=== PATIENT | male | born 1955 | race Caucasian/White ===

== ENCOUNTER → 2016-09-22 | Outpatient (CLI) | payer OTHER ==
[~2016-09-22] MED LIST: OPTIRAY 300 IV PRN
--- NOTE | 2016-09-22 14:51 | DIAGNOSTIC IMAGING REPORT ---
IV PYELOGRAM CLINICAL HISTORY: 61-year-old male with history of nephrolithiasis. TECHNIQUE: Initial bookkeeper assistant abdominal radiograph was obtained. IVP pyelogram was then performed following administration of intravenous contrast, tomographic images are acquired in the corticomedullary and excretory phases of enhancement. Overhead views of the renal collecting system and bladder were obtained in multiple obliquities both pre and post void. COMPARISON: Outside CT of the abdomen and pelvis from 08/02/2016. FINDINGS: Ovoid radiopaque focus in the left pelvis consistent with known distal left ureteral calculus. Normal bowel gas pattern. No gross evidence of free intraperitoneal gas. Osseous structures normal. Normal excretion of intravenous contrast noted bilaterally. No blunting of the calyces. Despite the presence of the distal left ureteral calculus, no hydronephrosis or hydroureter is noted on the left. No delayed excretion. The right renal collecting system is also normal. No filling defect to suggest urothelial mass lesion. Normal filling of the urinary bladder. Mild trabeculation of the bladder wall may be present, which could suggest chronic outlet obstruction. Post void imaging demonstrates near complete bladder imaging. IMPRESSION: 1. Nonobstructing 20 mm calculus in the distal left ureter. No hydronephrosis or hydroureter. Normal renal excretion. 2. Mild trabeculation of the bladder wall suggest chronic outlet obstruction, which could be due to benign prostatic hyperplasia. Electronically signed by: Tex Cuellar 09/22/2016 2:50 PM Dictated Date/Time: 09/22/2016 1:30 PM
== END | disposition home or self-care (01) ==
LOC: C.RAD 12:24
PROVIDERS: ATTEND Urology
DX: N20.2 Calculus of kidney with calculus of ureter (principal)

== ENCOUNTER 2017-03-17 08:41 | Day surgery (SDC) | payer OTHER ==
[2017-03-03 10:46] VITALS: Ht 152.4 cm; Wt 77.8 kg
--- NOTE | 2017-03-03 11:20 | PAT Medication Instructions ---
Service Date Mar 03, 2017. Current Home Medication List Amlodipine (Norvasc), 5 MG PO QAM Aspirin (Aspirin Ec), 81 MG PO QAM Fish Oil ([place]-3), 1 CAP PO QAM Niacin (Niacin), 500 MG PO QAM Medication Instructions For Your Scheduled Surgery - Hold the following medications 2 weeks prior to surgery: Fish Oil ([place]-3), 1 CAP PO QAM - Contact your surgeon for instructions: Aspirin (Aspirin Ec), 81 MG PO QAM - Hold the following medications 24 hours prior to surgery: Niacin (Niacin), 500 MG PO QAM - Take the following medications the morning of surgery with a sip of water: Amlodipine (Norvasc), 5 MG PO QAM If you have any questions please call us at [phone] or [phone] or [phone]
--- NOTE | 2017-03-03 12:07 | DIAGNOSTIC IMAGING REPORT ---
TWO VIEW CHEST CLINICAL HISTORY: Preoperative examination. FINDINGS: PA and lateral chest radiographs are obtained. No prior studies are available for comparison at the time of dictation. The heart is top normal for projection. The intestinal contour is within normal limits. The lungs and pleural spaces are clear. There is no pneumothorax. The bony thorax appears intact. There is moderate S-shaped thoracolumbar scoliosis. IMPRESSION: No active disease in the chest. Electronically signed by: Vicente Flores M.D. 03/03/2017 12:06 PM Dictated Date/Time: 03/03/2017 12:05 PM
[2017-03-03 12:28] LABS: BASO % 0.3 %; BASO ABS # 0.02 K/uL (0-0.2); EOS % 3.4 %; EOS ABS # 0.27 K/uL (0-0.5); HEMATOCRIT 43.5 % (42-52); HEMOGLOBIN 14.3 g/dL (14.0-18.0); IG# 0.02 K/uL (0.00-0.02); LYMPH ABS # 2.14 K/uL (1.2-3.4); MEAN CELL VOLUME 87.5 fL (80-100); MEAN CORPUSCULAR HEMOGLOBIN 28.8 pg (25-34); MEAN CORPUSCULAR HGB CONC 32.9 g/dl (32-36); MEAN PLATELET VOLUME 9.6 fL (7.4-10.4); MONO % 8.1 %; MONO ABS # 0.64 K/uL (0.11-0.59); NEUT % 60.9 %; NEUT ABS # 4.83 K/uL (1.4-6.5); PLATELET COUNT 292 K/uL (130-400); RED CELL DISTRIBUTION WIDTH CV 12.8 % (11.5-14.5); RED CELL DISTRIBUTION WIDTH SD 41.2 fL (36.4-46.3); WHITE BLOOD COUNT 7.92 K/uL (4.8-10.8)
[2017-03-03 12:36] LABS: CALCIUM 8.9 mg/dl (8.5-10.1); CREATININE 0.83 mg/dl (0.60-1.40); POTASSIUM 3.9 mmol/L (3.5-5.1)
[~2017-03-17] VITALS: Ht 152.4 cm; Wt 77.8 kg
[~2017-03-17 08:41] MED LIST changes: +AMLO5TAB3 PO; +ASPI81TA28 PO; +CIPROFLOXACIN / D5W 400 MG IV SCH; +LACTATED RINGER'S 1000ML 1,000 ML IV SCH; +NIAC500T11 PO; +OMEG10007 PO; -OPTIRAY 300 IV PRN
[2017-03-17 09:00] VITALS: BP 156/69; PULSE 76; TEMP 36.8; O2SAT 98
[2017-03-17] MEDS ORDERED: FENTANYL CITRATE INJ 50 MCG/1 ML 2 ML VIAL ONE (09:24)
[2017-03-17] MEDS ORDERED: ONDANSETRON INJ 2 MG/ML 2 ML VIAL ONE (09:24)
[2017-03-17] MEDS ORDERED: MIDAZOLAM HCL 1 MG/ML 2ML VIAL ONE (09:24)
[2017-03-17] MEDS ORDERED: LIDOCAINE HCL 2% 2 ML VIAL (20MG/ML) ONE (09:24)
[2017-03-17] MEDS ORDERED: PROPOFOL IV EMULSION 10 MG/ML 20 ML VIAL IV ONE (09:24)
--- NOTE | 2017-03-17 10:17 | History & Physical Bridge Note ---
H&P Re-Evaluation Bridge Note: I have examined the patient, reviewed the History & Physical and in the interval since the performance of the History & Physical I have noted the following changes of clinical significance: No changes noted Will be placing stent at end of procedure
[2017-03-17] MEDS ORDERED: CONRAY 30% 150ML BOTTLE ONE (10:21)
[2017-03-17] MEDS ORDERED: EpHEDrine SULFATE 50MG/5ML SYR ONE (10:53)
[2017-03-17] MEDS ORDERED: FENTANYL CITRATE INJ 50 MCG/1 ML 2 ML VIAL IV PRN (11:00)
[2017-03-17] MEDS ORDERED: ATROPINE SULFATE 0.1 MG/ML 5ML SYR IV PRN (11:00)
[2017-03-17] MEDS ORDERED: PROMETHAZINE HCL INJ 12.5 MG in SODIUM CHLORIDE 0.9% 50ML 50 ML IV PRN (11:00)
[2017-03-17] MEDS ORDERED: EpHEDrine SULFATE INJ 50 MG/ML AMP IV PRN (11:00)
[2017-03-17] MEDS ORDERED: HYDROmorphone INJ 1 MG/ML SYR IV PRN (11:00)
[2017-03-17] MEDS ORDERED: ONDANSETRON INJ 2 MG/ML 2 ML VIAL IV PRN (11:00)
--- NOTE | 2017-03-17 12:05 | [facility] Post Operative Brief Note ---
Immediate Operative Summary Operative Date Mar 17, 2017. Pre-Operative Diagnosis Left ureteric stone Post-Operative Diagnosis same as preop Procedure(s) Performed Cystoscopy, Left Ureteroscopy, Laser Lithotripsy; Placement of Left Ureteral Stent Surgeon Dr. Saucedo Field Irrigation Worker Surgeon(s) Dr Darius Urbina Estimated Blood Loss 2cc Findings large obstructing prostate with high bladder neck which made lateral movement of the cystosope and semi rigid ureteroscope difficult and inability of flexible scope to stay in ureter because of distal stone location Partial fragmentation of medial aspect of stone Specimens None as per Surgeon Drains 5 by 24 stent Complication(s) None
[2017-03-17] MEDS ORDERED: OXYC-57 PO (12:20)
--- NOTE | 2017-03-17 12:22 | Discharge Instructions ---
Discharge Instructions Date of Service Mar 17, 2017. Visit Reason for Visit: Stones Discharge Discharge Diagnosis / Problem: post op left ureteroscopy and laser lithotripsy and l stent Discharge Goals Goal(s): Increase independence, Improve disease control Activity Recommendations Activity Limitations: per Instructions/Follow-up section (light activity no driving on narcotics) Anesthesia . Post Anesthesia Instructions: If you have had General Anesthesia or IV Sedation: * Do not drive today. * Resume driving when surgeon permits. * Do not make important decisions or sign legal documents today. * Call surgeon for: 1. Temperature elevations greater than 101 degrees F. 2. Uncontrollable pain. 3. Excessive bleeding. 4. Persistent nausea and vomiting. 5. Medication intolerance (nausea, vomiting or rash). * For nausea and vomiting use only clear liquids such as: tea, soda, bouillon until nausea subsides, then gradually increase diet as tolerated. * If you have any concerns or questions, call your surgeon's office. If physician is unavailable and it is an emergency, call 911 or go to the nearest emergency room. . Diet Recommendations Recommended Home Diet: resume previous diet Procedures Procedures Performed: Cystoscopy, Left Ureteroscopy, Laser Lithotripsy; Placement of Left Ureteral Stent Pending Studies Studies pending at discharge: no Medical Emergencies . Who to Call and When: Medical Emergencies: If at any time you feel your situation is an emergency, please call 911 immediately. . Non-Emergent Contact Non-Emergency issues call your: Urologist Call Non-Emergent contact if: temperature is above 100.5, your pain is not controlled . . "Provider Documentation" section prepared by Ar Saucedo. .
[2017-03-17] MEDS ORDERED: PHEN-876 PO (12:23)
--- NOTE | 2017-03-17 12:37 | DIAGNOSTIC IMAGING REPORT ---
KUB CLINICAL HISTORY: LT CYSTO/LASER/STENT COMPARISON STUDY: IVP September 22, [address] of the abdomen and pelvis July 23, 2016. Fluoroscopy time: 95.5 seconds. FINDINGS: 6 fluoroscopic images from a left retrograde exam were submitted for interpretation. These images again demonstrate a suspected large distal left ureteral calculus. The left ureter was cannulated. Subsequent images demonstrate placement of a left ureteral stent. IMPRESSION: Fluoroscopic images from left retrograde exam with left ureteral stent insertion. Redemonstration of a suspected large distal left ureteral calculus. Electronically signed by: Jeferson Rich M.D. 03/17/2017 12:36 PM Dictated Date/Time: 03/17/2017 12:30 PM
--- NOTE | 2017-03-17 12:47 | Anesthesiology Progress Note ---
Anesthesia Post Op Note Date & Time Mar 17, 2017 at 12:47 Vital Signs Pain Intensity: 0 Vital Signs Past 12 Hours Date Time Temp Pulse Resp B/P (MAP) Pulse Ox O2 Delivery O2 Flow Rate FiO2 03/17/17 12:40 77 15 165/95 95 Room Air 03/17/17 12:30 81 15 161/98 96 Room Air 03/17/17 12:20 88 14 168/ 97 Oxymask 10 03/17/17 12:11 36.4 79 18 167/95 100 Oxymask 10 03/17/17 09:00 36.8 76 16 156/69 (98) 98 Room Air Notes Mental Status: alert / awake / arousable, participated in evaluation Pt Amnestic to Procedure: Yes Nausea / Vomiting: adequately controlled Pain: adequately controlled Airway Patency, RR, SpO2: stable & adequate BP & HR: stable & adequate Hydration State: stable & adequate Anesthetic Complications: no major complications apparent
[2017-03-17 12:55] VITALS: BP 168/84; PULSE 80; TEMP 36.5; O2SAT 96
[2017-03-17 13:25] VITALS: BP 172/88; PULSE 84; O2SAT 97
[2017-03-17] MEDS ORDERED: NURSING VERBAL MED ORDER ONE (13:45)
[2017-03-17] MEDS ORDERED: OXYBUTYNIN CHLORIDE 5 MG TAB PO SCH (13:45)
--- NOTE | 2017-03-17 19:09 | OPERATIVE REPORT ---
DATE OF OPERATION: 03/17/2017 PREOPERATIVE DIAGNOSIS: Large distal ureteral stone. POSTOPERATIVE DIAGNOSIS: Same. SURGEON: Dr. Saucedo. CAR REPAIR SUPERVISOR: Dr. Urbina. ANESTHESIA: General. INDICATIONS: The patient is a 61-year-old male who had a long history of having a stone in his distal ureter that is not causing him discomfort. He did not have insurance, so he waited until this point to proceed with ureteroscopy. We discussed lithotripsy and ureteroscopy, but I felt that ureteroscopy given a better chance of having this removed in one go. DESCRIPTION OF THE PROCEDURE: The patient was taken to the cysto suite where general anesthesia was administered, he was placed in dorsal lithotomy position and prepped and draped in the usual sterile fashion. He had given preoperative antibiotics. The 21-Sami cystoscope was passed per urethra, but the patient had a very high bladder neck and an enlarged prostate. Once inside the bladder which had great difficulty torquing downward to get the scope up and over the bladder neck. The prostate was so tight that I could barely torque the scope laterally to see the urethra, in fact, I needed to use a 70 degree lens with a deflecting bridge just to get a guidewire into the ureteral orifice and I needed a 5-Sami open-ended catheter to put the guidewire through to get into the orifice. I was able to get a wire beyond the stone with some difficulty up into the proximal renal pelvis. I did attempt to pass a ureteroscope into the bladder using the initial wire as a safety wire, I was able to get the ureteroscope into the bladder, but I was unable to torque it laterally far enough to get into the ureter. At this point, Dr. Urbina came in to assist. We were able to get a second safety wire and then he was able to get the ureteroscope going over the second safety wire up into the ureter, but we were only able to laser the medial aspect of the stone and because the limited amount of torque could be put on the ureteroscope. Only about 5-10% of the stone was fragmented, may be slightly more and it was clear that this was not going to work. I did attempt to pass a flexible scope up to the stone over the second guidewire that was replaced through the ureteroscope, but because the stone was so close to the UVJ, the ureteroscope fell out and it was clear that it would not stay in place and there was no way to use a tube to keep it in place. At the end of the day, the patient had quite a bit of trauma to his prostate just trying to get the scope in into his ureteral orifice, so a 5-Sami 24 cm stent was placed and the patient was transferred to the recovery room in stable condition with plans of trying lithotripsy. I attest to the content of the Intraoperative Record and any orders documented therein. Any exception s are noted below.
[2017-03-25] MEDS ORDERED: OXYC-57 PO (07:16)
[2017-04-04] MEDS ORDERED: OXYC-57 PO (08:46)
[2017-04-08] MEDS ORDERED: OXYC-57 PO (07:43)
[2017-04-14] MEDS ORDERED: ASPI81TA28 PO (08:46)
[2017-04-14] MEDS ORDERED: PHEN-775 PO (13:14)
[2017-04-14] MEDS ORDERED: NITR1CAP16 PO (13:14)
== END 2017-03-17 14:15 | disposition home or self-care (01) ==
LOC: C.ACU 08:41
PROVIDERS: ATTEND Urology
DX: N20.1 Calculus of ureter (principal); N40.0 Benign prostatic hyperplasia without lower urinary tract symptoms; I10 Essential (primary) hypertension; E78.5 Hyperlipidemia, unspecified; J45.909 Unspecified asthma, uncomplicated; E66.9 Obesity, unspecified; Z68.33 Body mass index [BMI] 33.0-33.9, adult; M41.9 Scoliosis, unspecified; Z79.82 Long term (current) use of aspirin; Z79.899 Other long term (current) drug therapy; Z87.891 Personal history of nicotine dependence

== ENCOUNTER → 2017-03-24 | Outpatient (CLI) | payer OTHER ==
[~2017-03-24] MED LIST changes: +AMLO-110 PO; -AMLO5TAB3 PO; -ASPI81TA28 PO; -CIPROFLOXACIN / D5W 400 MG IV SCH; -LACTATED RINGER'S 1000ML 1,000 ML IV SCH; -NIAC500T11 PO; +OXYC-57 PO
--- NOTE | 2017-03-24 17:19 | DIAGNOSTIC IMAGING REPORT ---
KUB CLINICAL HISTORY: N20.0 Nephrolithiasis COMPARISON STUDY: 09/22/2016 FINDINGS: There is no pathologic bowel dilatation. 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 There is a left-sided nephroureteral stent. There is a 19 mm distal left ureteral calculus. IMPRESSION: 1. 19 mm distal left ureteral calculus 2. Left-sided nephroureteral stent Electronically signed by: Raul Kraus M.D. 03/24/2017 5:18 PM Dictated Date/Time: 03/24/2017 5:17 PM
== END | disposition home or self-care (01) ==
LOC: C.RAD 16:56
PROVIDERS: ATTEND Urology
DX: N20.0 Calculus of kidney (principal); Z96.0 Presence of urogenital implants

== ENCOUNTER → 2017-03-25 | Day surgery (SDC) | payer OTHER ==
[2017-03-23 10:23] VITALS: Ht 152.4 cm; Wt 77.7 kg
[~2017-03-25] VITALS: Ht 152.4 cm; Wt 77.7 kg
[~2017-03-25] MED LIST changes: +ATROPINE SULFATE 0.1 MG/ML 5ML SYR IV PRN; +CIPROFLOXACIN 400MG / D5W IV SCH; +DEXAMETHASONE SOD INJ 4 MG/ML VIAL ONE; +EpHEDrine SULFATE INJ 50 MG/ML AMP IV PRN; +FENTANYL CITRATE INJ 50 MCG/1 ML 2 ML VIAL IV PRN; +FENTANYL CITRATE INJ 50 MCG/1 ML 2 ML VIAL ONE; +LACTATED RINGER'S 1000ML 1,000 ML IV SCH; +LIDOCAINE HCL 2% 2 ML VIAL (20MG/ML) ONE; +MIDAZOLAM HCL 1 MG/ML 2ML VIAL ONE; +ONDANSETRON INJ 2 MG/ML 2 ML VIAL IV PRN; +ONDANSETRON INJ 2 MG/ML 2 ML VIAL ONE; +OXYCODONE/ACETAMINOPHEN 5-325 TAB PO PRN; +PROPOFOL IV EMULSION 10 MG/ML 20 ML VIAL IV ONE; +SODIUM CHLORIDE 0.9% 1000ML 1,000 ML IV SCH
--- NOTE | 2017-03-25 07:05 | History & Physical Bridge Note ---
H&P Re-Evaluation Bridge Note: I have examined the patient, reviewed the History & Physical and in the interval since the performance of the History & Physical I have noted the following changes of clinical significance: No changes noted
--- NOTE | 2017-03-25 07:18 | Discharge Instructions-SurgCtr ---
Discharge Instructions Date of Service Mar 25, 2017. Visit Reason for Visit: Stones Discharge Discharge Diagnosis / Problem: stones Discharge Goals Goal(s): Decrease discomfort, Improve function, Increase independence, Improve disease control, Prevent Disease Progression Medications Stopped Medications Name(s): fish oil stopped 02/1517 Activity Recommendations Activity Limitations: resume your previous activity Lifting Limitations: none Exercise/Sports Limitations: none May Resume Sexual Activity: when tolerated Shower/Bathe: no limitations Driving or Machine Use: resume 1 day after discharge Anesthesia . Post Anesthesia Instructions: If you have had General Anesthesia or IV Sedation: * Do not drive today. * Resume driving when surgeon permits. * Do not make important decisions or sign legal documents today. * Call surgeon for: 1. Temperature elevations greater than 101 degrees F. 2. Uncontrollable pain. 3. Excessive bleeding. 4. Persistent nausea and vomiting. 5. Medication intolerance (nausea, vomiting or rash). * For nausea and vomiting use only clear liquids such as: tea, soda, bouillon until nausea subsides, then gradually increase diet as tolerated. * If you have any concerns or questions, call your surgeon's office. If physician is unavailable and it is an emergency, call 911 or go to the nearest emergency room. . Diet Recommendations Home Diet: no limitations, resume previous diet Pending Studies Studies pending at discharge: no Medical Emergencies . Who to Call and When: Medical Emergencies: If at any time you feel your situation is an emergency, please call 911 immediately. . Non-Emergent Contact Non-Emergency issues call your: Urologist Call Non-Emergent contact if: you have a fever, temperature is above 101.5, your pain is not controlled, your pain is worsening . . "Provider Documentation" section prepared by Diony Choi. . [place] Drug Monitoring Program Search Results: patient reviewed within database, no issues identified Drug Monitoring Findings: 1 prior, appropriate, prescription
--- NOTE | 2017-03-25 08:24 | [facility] Operative Report ---
Operative Report Operative Date Mar 25, 2017. Pre-Operative Diagnosis Left Ureteral stone Post-Operative Diagnosis Same as pre-op Procedure(s) Performed Left Ureteral Extracorporeal Shock Wave Lithotripsy Surgeon Obstetrics Gyn Physician Surgeon(s) None Estimated Blood Loss Zero Findings left ureteral stone Specimens None Drains none Anesthesia Gen. Complication(s) None Disposition Recovery Room / PACU Indications Left ureteral stone Description of Procedure The patient was identified in the preoperative holding area, appropriate informed consent was reviewed and completed and the patient was transported to the operating suite. Upon arrival appropriate preoperative antibiotics were administered and general anesthesia induced. The patient was placed in supine position and the stone was localized under fluoroscopy. A total of 3000 shocks were delivered to the stone. There appeared to be good fragmentation of the stone. Details of this procedure can be found on the [facility] information sheet. At the conclusion of the case the patient was extubated and taken to the PACU in stable condition. There were no complications. I attest to the content of the Intraoperative Record and any orders documented therein. Any exceptions are noted below.
--- NOTE | 2017-03-25 08:35 | Anesthesia Progress Nt - [facility] ---
Anesthesia Post Op Note Date & Time Mar 25, 2017 at 08:34 Vital Signs Pain Intensity: 0 Vital Signs Past 12 Hours Date Time Temp Pulse Resp B/P (MAP) Pulse Ox O2 Delivery O2 Flow Rate FiO2 03/25/17 08:21 102/55 03/25/17 08:18 37.4 62 12 131/69 95 Room Air 03/25/17 08:17 61 16 96 03/25/17 08:17 61 16 03/25/17 08:16 131/69 03/25/17 08:12 62 18 03/25/17 08:12 63 18 98 03/25/17 08:11 127/73 03/25/17 08:09 61 13 98 03/25/17 08:09 61 13 03/25/17 08:06 125/71 03/25/17 08:04 61 13 03/25/17 08:04 61 13 98 03/25/17 08:03 66 15 03/25/17 08:03 66 15 98 03/25/17 08:03 66 15 03/25/17 08:03 66 15 98 03/25/17 08:00 142/76 03/25/17 08:00 142/76 03/25/17 07:58 65 15 03/25/17 07:58 66 15 98 03/25/17 07:58 65 15 03/25/17 07:58 66 15 98 03/25/17 07:56 132/71 03/25/17 07:56 132/71 03/25/17 07:54 130/90 03/25/17 07:54 130/90 03/25/17 07:53 37.3 72 16 130/90 96 Diffusion Mask 6 03/25/17 06:27 36.6 65 22 154/74 (100) 95 Room Air Notes Mental Status: alert / awake / arousable, participated in evaluation Pt Amnestic to Procedure: Yes Nausea / Vomiting: adequately controlled Pain: adequately controlled Airway Patency, RR, SpO2: stable & adequate BP & HR: stable & adequate Hydration State: stable & adequate Anesthetic Complications: no major complications apparent
[2017-03-25 09:04] VITALS: BP 121/68; PULSE 64; O2SAT 95
== END | disposition home or self-care (01) ==
LOC: X.SURG 06:13
PROVIDERS: ATTEND Urology
DX: N20.1 Calculus of ureter (principal); E78.5 Hyperlipidemia, unspecified; I10 Essential (primary) hypertension; Z90.89 Acquired absence of other organs; Z79.82 Long term (current) use of aspirin; Z82.49 Family history of ischemic heart disease and other diseases of the circulatory system; Z84.1 Family history of disorders of kidney and ureter

== ENCOUNTER → 2017-03-31 | Outpatient (CLI) | payer OTHER ==
[~2017-03-31] MED LIST changes: -ATROPINE SULFATE 0.1 MG/ML 5ML SYR IV PRN; -CIPROFLOXACIN 400MG / D5W IV SCH; -DEXAMETHASONE SOD INJ 4 MG/ML VIAL ONE; -EpHEDrine SULFATE INJ 50 MG/ML AMP IV PRN; -FENTANYL CITRATE INJ 50 MCG/1 ML 2 ML VIAL IV PRN; -FENTANYL CITRATE INJ 50 MCG/1 ML 2 ML VIAL ONE; -LACTATED RINGER'S 1000ML 1,000 ML IV SCH; -LIDOCAINE HCL 2% 2 ML VIAL (20MG/ML) ONE; -MIDAZOLAM HCL 1 MG/ML 2ML VIAL ONE; -ONDANSETRON INJ 2 MG/ML 2 ML VIAL IV PRN; -ONDANSETRON INJ 2 MG/ML 2 ML VIAL ONE; -OXYCODONE/ACETAMINOPHEN 5-325 TAB PO PRN; -PROPOFOL IV EMULSION 10 MG/ML 20 ML VIAL IV ONE; -SODIUM CHLORIDE 0.9% 1000ML 1,000 ML IV SCH
--- NOTE | 2017-03-31 11:49 | DIAGNOSTIC IMAGING REPORT ---
KUB HISTORY: N20.0 Nephrolithiasis TO BE DONE EITHER THE NIGHT BEFORE OR MORNI COMPARISON: KUB 03/24/2017. FINDINGS: The bowel gas pattern is unremarkable. There are no dilated loops of small bowel to suggest an obstruction. The left ureteral stent is unchanged in position. Large distal left ureteral stone has been slightly fragmented but remains unchanged in position. Calcification within the right side the abdomen is seen within the anterior abdominal wall in the prior CT examination. No renal calculi identified.. No pneumoperitoneum or pneumatosis. IMPRESSION: The large distal left ureteral stone has been slightly fragmented but remains unchanged in position. Electronically signed by: Mendez Cadena M.D. 03/31/2017 11:48 AM Dictated Date/Time: 03/31/2017 11:45 AM
[2017-03-31 14:37] LABS: BASO % 0.3 %; BASO ABS # 0.03 K/uL (0-0.2); EOS % 3.2 %; HEMATOCRIT 39.1 % (42-52); HEMOGLOBIN 12.8 g/dL (14.0-18.0); IG# 0.02 K/uL (0.00-0.02); LYMPH % 25.5 %; LYMPH ABS # 2.42 K/uL (1.2-3.4); MEAN CELL VOLUME 87.9 fL (80-100); MEAN CORPUSCULAR HEMOGLOBIN 28.8 pg (25-34); MEAN CORPUSCULAR HGB CONC 32.7 g/dl (32-36); MEAN PLATELET VOLUME 9.2 fL (7.4-10.4); MONO % 6.9 %; MONO ABS # 0.66 K/uL (0.11-0.59); NEUT % 63.9 %; NEUT ABS # 6.07 K/uL (1.4-6.5); PLATELET COUNT 294 K/uL (130-400); RED CELL DISTRIBUTION WIDTH CV 12.4 % (11.5-14.5); RED CELL DISTRIBUTION WIDTH SD 39.7 fL (36.4-46.3)
[2017-03-31 15:04] LABS: BLOOD UREA NITROGEN 12 mg/dl (7-18); CARBON DIOXIDE 30 mmol/L (21-32); CREATININE 0.87 mg/dl (0.60-1.40); POTASSIUM 3.7 mmol/L (3.5-5.1); SODIUM 138 mmol/L (136-145)
== END | disposition home or self-care (01) ==
LOC: C.RAD 11:29
PROVIDERS: ATTEND Urology
DX: N20.0 Calculus of kidney (principal)

== ENCOUNTER → 2017-04-07 | Outpatient (CLI) | payer OTHER ==
--- NOTE | 2017-04-07 18:11 | DIAGNOSTIC IMAGING REPORT ---
KUB HISTORY: N20.0 Nephrolithiasis COMPARISON: KUB 03/31/2017. FINDINGS: The bowel gas pattern is unremarkable. There are no dilated loops of small bowel to suggest an obstruction. The left ureteral stent is unchanged in position. Large cluster of stones seen within the distal left ureter measuring a total length of 2 cm. There are few prostate calculi present, unchanged. Stable calcification within the right lower quadrant. No right renal or ureteral calculi identified. No pneumoperitoneum or pneumatosis. IMPRESSION: No change in the fragmented 2 cm stone within the distal left ureter. The left ureteral stent is unchanged in position. Electronically signed by: Mendez Cadena M.D. 04/07/2017 6:09 PM Dictated Date/Time: 04/07/2017 6:07 PM
== END | disposition home or self-care (01) ==
LOC: C.RAD 17:49
PROVIDERS: ATTEND Urology
DX: N20.0 Calculus of kidney (principal); N20.1 Calculus of ureter; Z96.0 Presence of urogenital implants

== ENCOUNTER → 2017-04-08 | Day surgery (SDC) | payer OTHER ==
[2017-04-04 08:47] VITALS: Ht 152.4 cm; Wt 77.7 kg
[~2017-04-08] VITALS: Ht 152.4 cm; Wt 77.7 kg
[~2017-04-08] MED LIST changes: +ATROPINE SULFATE 0.1 MG/ML 5ML SYR IV PRN; +CIPROFLOXACIN 400MG / D5W IV SCH; +DEXAMETHASONE SOD INJ 4 MG/ML VIAL ONE; +EpHEDrine SULFATE INJ 50 MG/ML AMP IV PRN; +FENTANYL CITRATE INJ 50 MCG/1 ML 2 ML VIAL IV PRN; +FENTANYL CITRATE INJ 50 MCG/1 ML 2 ML VIAL ONE; +FLUMAZENIL 0.1 MG/1 ML 10 ML VIAL IV PRN; +LABETALOL HCL IV 5 MG/ML 20ML IV PRN; +LACTATED RINGER'S 1000ML 1,000 ML IV SCH; +LIDOCAINE HCL 2% 2 ML VIAL (20MG/ML) ONE; +MIDAZOLAM HCL 1 MG/ML 2ML VIAL ONE; +NALOXONE HCL 0.4 MG/1 ML VIAL/CARP IV PRN; +ONDANSETRON INJ 2 MG/ML 2 ML VIAL IV PRN; +ONDANSETRON INJ 2 MG/ML 2 ML VIAL ONE; +OXYCODONE/ACETAMINOPHEN 5-325 TAB PO PRN; +PROPOFOL IV EMULSION 10 MG/ML 20 ML VIAL IV ONE
--- NOTE | 2017-04-08 07:34 | History & Physical Bridge Note ---
H&P Re-Evaluation Bridge Note: I have examined the patient, reviewed the History & Physical and in the interval since the performance of the History & Physical I have noted the following changes of clinical significance: Left distal stone to be targeted
--- NOTE | 2017-04-08 07:45 | Discharge Instructions ---
Discharge Instructions Date of Service Apr 08, 2017. Admission Reason for Admission: STONE Discharge Discharge Diagnosis / Problem: L distal ureteral stone with stent s/p ESWL Discharge Goals Goal(s): Decrease discomfort, Improve function, Improve disease control, Therapeutic intervention Activity Recommendations Activity Limitations: as noted below Lifting Limitations: no more than 25 pounds, gradually increase as tolerated Exercise/Sports Limitations: rest today, gradually increase as tolerated May Resume Sexual Activity: when tolerated Shower/Bathe: no limitations Driving or Machine Use: resume 1 day after discharge . Instructions / Follow-Up Instructions / Follow-Up As scheduled in office with KUB Xray before visit. Current Hospital Diet Patient's current hospital diet: Discharge Diet Recommended Diet: Regular Diet (good fluid intake) Procedures Procedures Performed: Left distal ureteral ESWL Pending Studies Studies pending at discharge: no Medical Emergencies . Who to Call and When: Medical Emergencies: If at any time you feel your situation is an emergency, please call 911 immediately. . Non-Emergent Contact Non-Emergency issues call your: Urologist Call Non-Emergent contact if: you have a fever, temperature is above 101, your pain is not controlled, your pain is worsening, your pain is unusual for you, your pain is concerning you, you have any medication questions . . "Provider Documentation" section prepared by Darius Urbina. . VTE Core Measure Inpt VTE Proph given/why not?: SCD's [place] Drug Monitoring Program Search Results: patient reviewed within database, see additional documentation (2 recent Rx for narcotics associated with current stone, last 10 days ago - patient requests refill for postop analgesia)
--- NOTE | 2017-04-08 08:25 | [facility] Post Operative Brief Note ---
Immediate Operative Summary Operative Date Apr 08, 2017. Pre-Operative Diagnosis Left Ureteral Stone Post-Operative Diagnosis Same Procedure(s) Performed Left Extracorporeal Shock Wave Lithotripsy, Repeat Surgeon Dr. Juan Luis Urbina Wafer Fabrication Technician Surgeon(s) None Estimated Blood Loss 0 mL Findings Consistent with Post-Op Diagnosis Specimens None Anesthesia Type General Complication(s) none Disposition Accompanied Pt To Recover: no Disposition: Recovery Room / PACU
--- NOTE | 2017-04-08 08:26 | [facility] Operative Report ---
Operative Report Operative Date Apr 08, 2017. Pre-Operative Diagnosis Left Ureteral Stone Post-Operative Diagnosis Same Procedure(s) Performed Left Extracorporeal Shock Wave Lithotripsy, Repeat Surgeon Dr. Juan Luis Urbina International Account Manager Surgeon(s) None Estimated Blood Loss 0 mL Findings Fair stone fragmentation on fluoro Specimens None Drains Indwelling stent Anesthesia GALMA Disposition Recovery Room / PACU Indications 61 yo male with persistent L distal ureteral stone for repeat treatment. Please see H&P for further details. IV Cipro provided preop, SCDs for DVT prophylaxis. Description of Procedure The patient was brought to the litho suite. He was correctly identified and the stone was visualized on his most recent x-rays. After the correct time out was performed the patient was positioned over the therapy head. An adequate level of anesthesia was administered. The extracorporeal shockwave lithotripsy treatment was then commenced. Please see the [facility] sheet for complete treatment summary. After completion of the procedure the patient was taken to the recovery room in stable condition. I attest to the content of the Intraoperative Record and any orders documented therein. Any exceptions are noted below.
[2017-04-08 09:06] VITALS: TEMP 37
--- NOTE | 2017-04-08 09:20 | Anesthesia Progress Nt - [facility] ---
Anesthesia Post Op Note Date & Time Apr 08, 2017 at 09:20 Vital Signs Pain Intensity: 0 Vital Signs Past 12 Hours Date Time Temp Pulse Resp B/P (MAP) Pulse Ox O2 Delivery O2 Flow Rate FiO2 04/08/17 09:06 37.0 81 18 151/76 (101) 95 Room Air 04/08/17 08:55 73 12 04/08/17 08:55 37.1 75 13 124/73 97 Room Air 04/08/17 08:55 74 12 124/73 98 04/08/17 08:50 82 18 134/73 96 04/08/17 08:50 82 18 04/08/17 08:45 75 13 04/08/17 08:45 75 13 133/75 99 04/08/17 08:40 75 10 04/08/17 08:40 75 10 129/67 99 04/08/17 08:35 81 21 127/75 99 04/08/17 08:35 82 21 04/08/17 08:30 87 142/80 98 04/08/17 08:30 87 04/08/17 08:30 36.9 86 16 142/80 96 Mask 6 04/08/17 07:19 36.7 73 18 181/95 (123) 95 Room Air Notes Mental Status: alert / awake / arousable, participated in evaluation Pt Amnestic to Procedure: Yes Nausea / Vomiting: adequately controlled Pain: adequately controlled Airway Patency, RR, SpO2: stable & adequate BP & HR: stable & adequate Hydration State: stable & adequate Anesthetic Complications: no major complications apparent
[2017-04-08 09:33] VITALS: BP 151/87; PULSE 78; O2SAT 96
== END | disposition home or self-care (01) ==
LOC: X.SURG 07:02
PROVIDERS: ATTEND Urology
DX: N20.1 Calculus of ureter (principal); I10 Essential (primary) hypertension

== ENCOUNTER → 2017-04-13 | Outpatient (CLI) | payer OTHER ==
[~2017-04-13] MED LIST changes: +ASPI81TA28 PO; -ATROPINE SULFATE 0.1 MG/ML 5ML SYR IV PRN; -CIPROFLOXACIN 400MG / D5W IV SCH; -DEXAMETHASONE SOD INJ 4 MG/ML VIAL ONE; -EpHEDrine SULFATE INJ 50 MG/ML AMP IV PRN; -FENTANYL CITRATE INJ 50 MCG/1 ML 2 ML VIAL IV PRN; -FENTANYL CITRATE INJ 50 MCG/1 ML 2 ML VIAL ONE; -FLUMAZENIL 0.1 MG/1 ML 10 ML VIAL IV PRN; -LABETALOL HCL IV 5 MG/ML 20ML IV PRN; -LACTATED RINGER'S 1000ML 1,000 ML IV SCH; -LIDOCAINE HCL 2% 2 ML VIAL (20MG/ML) ONE; -MIDAZOLAM HCL 1 MG/ML 2ML VIAL ONE; -NALOXONE HCL 0.4 MG/1 ML VIAL/CARP IV PRN; +NITR1CAP16 PO; -ONDANSETRON INJ 2 MG/ML 2 ML VIAL IV PRN; -ONDANSETRON INJ 2 MG/ML 2 ML VIAL ONE; -OXYCODONE/ACETAMINOPHEN 5-325 TAB PO PRN; +PHEN-775 PO; -PROPOFOL IV EMULSION 10 MG/ML 20 ML VIAL IV ONE
--- NOTE | 2017-04-13 13:51 | DIAGNOSTIC IMAGING REPORT ---
KUB HISTORY: N20.0 [id number] COMPARISON: KUB 04/07/2017. FINDINGS: The bowel gas pattern is unremarkable. There are no dilated loops of small bowel to suggest an obstruction. The left ureteral stent is unchanged in position. There has been progressive fragmentation of the stones at the distal left ureter/ureterovesical junction. No renal calculi identified. No pneumoperitoneum or pneumatosis. IMPRESSION: Progressive fragmentation of the stones at the distal left ureter/ureterovesical junction. The left ureteral stent is unchanged in position. Electronically signed by: Mendez Cadena M.D. 04/13/2017 1:50 PM Dictated Date/Time: 04/13/2017 1:48 PM
== END | disposition home or self-care (01) ==
LOC: C.RAD 12:51
PROVIDERS: ATTEND Urology
DX: N20.0 Calculus of kidney (principal); N20.1 Calculus of ureter; Z96.0 Presence of urogenital implants

== ENCOUNTER → 2017-04-14 | Day surgery (SDC) | payer OTHER ==
[~2017-04-14] VITALS: Ht 152.4 cm; Wt 78.0 kg
[~2017-04-14] MED LIST changes: +ATROPINE SULFATE 0.1 MG/ML 5ML SYR IV PRN; +CONRAY 30% 150ML BOTTLE ONE; +EpHEDrine SULFATE INJ 50 MG/ML AMP IV PRN; +FENTANYL CITRATE INJ 50 MCG/1 ML 2 ML VIAL IV PRN; +FENTANYL CITRATE INJ 50 MCG/1 ML 2 ML VIAL ONE; +GENTAMICIN INJ 120 MG in DEXTROSE 5% 100ML 100 ML IV SCH; +HYDROmorphone INJ 0.5 MG/0.5 ML SYR IV PRN; +LACTATED RINGER'S 1000ML 1,000 ML IV SCH; +LIDOCAINE HCL 2% 2 ML VIAL (20MG/ML) ONE; +MIDAZOLAM HCL 1 MG/ML 2ML VIAL ONE; +MoRPHine SULFATE 2 MG/ML CARP IV PRN; +ONDANSETRON INJ 2 MG/ML 2 ML VIAL IV PRN; +ONDANSETRON INJ 2 MG/ML 2 ML VIAL ONE; +OXYCODONE/ACETAMINOPHEN 5-325 TAB PO PRN; +PHENAZOPYRIDINE HCL 200 MG TAB PO PRN; +PROPOFOL IV EMULSION 10 MG/ML 20 ML VIAL IV ONE
[2017-04-14 08:47] VITALS: BP 157/88; PULSE 77; TEMP 37; O2SAT 97; Ht 152.4 cm; Wt 78.0 kg
--- NOTE | 2017-04-14 12:57 | [facility] Post Operative Brief Note ---
Immediate Operative Summary Operative Date Apr 14, 2017. Pre-Operative Diagnosis Left Refractory Ureteral Stone Post-Operative Diagnosis Left Refractory Ureteral Stone Procedure(s) Performed Cystoscopy, Left Semi Rigid Ureteroscopy, Laser Lithotripsy, Basket Stone Extraction, Ureteral Stent Exchange, Clot Irrigation, Mari Placement Surgeon Dr. Darius Urbina Gathering Worker Surgeon(s) None Estimated Blood Loss 20 ML Findings Consistent with Post-Op Diagnosis Specimens A. Stone Fragment for Chemical Analysis Drains 6 fr multilength L ureteral stent, 22 fr coude 10 cc Anesthesia Type General Complication(s) none Disposition Accompanied Pt To Recover: no Disposition: Recovery Room / PACU
--- NOTE | 2017-04-14 13:15 | Discharge Instructions ---
Discharge Instructions Date of Service Apr 14, 2017. Admission Reason for Admission: Stones Discharge Discharge Diagnosis / Problem: L distal ureteral stone s/p laser litho, stent exchange Discharge Goals Goal(s): Decrease discomfort, Improve disease control, Therapeutic intervention Activity Recommendations Activity Limitations: as noted below Lifting Limitations: no more than 25 pounds, gradually increase as tolerated Exercise/Sports Limitations: rest today, gradually increase as tolerated May Resume Sexual Activity: after follow-up appointment Shower/Bathe: no limitations Driving or Machine Use: resume 1 day after discharge . Instructions / Follow-Up Instructions / Follow-Up Follow-up in office with [facility] Xray before visit for possible stent removal Current Hospital Diet Patient's current hospital diet: Discharge Diet Recommended Diet: Regular Diet (good fluid intake) Procedures Procedures Performed: Cystoscopy, Left Semi Rigid Ureteroscopy, Laser Lithotripsy, Basket Stone Extraction, Ureteral Stent Exchange, Clot Irrigation, Mari Placement Pending Studies Studies pending at discharge: yes List of pending studies: Stone analysis Medical Emergencies . Who to Call and When: Medical Emergencies: If at any time you feel your situation is an emergency, please call 911 immediately. . Non-Emergent Contact Non-Emergency issues call your: Urologist Call Non-Emergent contact if: you have a fever, temperature is above 101, your pain is not controlled, your pain is worsening, your pain is unusual for you, your pain is concerning you, you have any medication questions . . "Provider Documentation" section prepared by Darius Urbina. . VTE Core Measure Inpt VTE Proph given/why not?: SCD's
--- NOTE | 2017-04-14 13:26 | [facility] Operative Report ---
Operative Report Operative Date Apr 14, 2017. Pre-Operative Diagnosis Left Refractory Ureteral Stone Post-Operative Diagnosis Left Refractory Ureteral Stone Procedure(s) Performed Cystoscopy, Left Semi Rigid Ureteroscopy, Laser Lithotripsy, Basket Stone Extraction, Ureteral Stent Exchange, Clot Irrigation, Mari Placement Surgeon Dr. Darius Urbina Exceptional Student Education Teacher Surgeon(s) None Estimated Blood Loss 20 ML Findings Friable prostate with some bleeding, large L distal ureteral stone fragmented and most of it removed with basket, good stent position at completion of case. Specimens A. Stone Fragment for Chemical Analysis Drains 6 fr multilength L ureteral stent, 22 fr coude 10 cc Anesthesia GALMA Complication(s) None Disposition Recovery Room / PACU Indications Patient is a pleasant 61-year-old male with a history of a large left distal ureteral stone status post stent placement approximately one month ago. He has undergone 2 shockwave lithotripsies with partial fragmentation of his stone. After discussion of risks and benefits of various forms of management is decided upon endoscopic extraction of his residual stone managed his disease. Please see H&P and office visit for further details. Intravenous antibiotics were provided for coverage and SCDs used for DVT prophylaxis. Description of Procedure Patient was properly identified and brought into the operative suite after identification for appropriate consent of the chart. General anesthesia with laryngeal mask was initiated and patient was prepped and draped in the standard fashion for this procedure. Full timeout procedure was followed. 22 [place] rigid cystoscope was passed into the bladder under direct visualization demonstrating a normal urethra, elevated bladder neck with a median lobe element and lateral lobe hypertrophy. Grade 2 trabeculation of the bladder was appreciated with small stone fragments being present. Redundant stent was noted from the left ureteral orifice with expected mild edema in the vicinity. Stent was grasped and brought to the level of the meatus but attempts to cannulate it were not successful in the region of the proximal stent. Cystoscope was reintroduced into the bladder and using a sole sewer hand catheter a sensor tip wire was advanced next to the stent and passed stones up to the level of the left renal pelvis and kept until the end of the case as a safety wire. A second angled sensor wire was introduced is working wire but coiled within the distal ureter just proximal to the stone. Stent was grasped and removed intact without difficulties. Semirigid ureteroscope was introduced after emptying the bladder and passed into the left distal ureter without excess difficulty. Stone was encountered and using a 200 fiber on dusting settings the patient's left ureteral stone fragments were broken into much smaller pieces and dust. This was continued until the scope was able to be advanced up to the level of the vessels with proximal dilation being appreciated with no significant large residual stone fragments being noted. A 0 tip basket was used to remove the larger fragments from the patient which were sent for chemical analysis. Ureteroscope was reintroduced into the ureter and several other stone fragments were removed and left within the bladder for removal at the end of the case. Ureteroscope was reintroduced and no significant large stone fragments were appreciated either on direct visualization or fluoroscopy. No significant ureteral injury or tears were noted. Complete exit ureteroscopy was performed. Cystoscope was backloaded over the safety wire and a 6 [place] multilength ureteral stent was advanced with a full coil being present both within the left renal pelvis and within the bladder. Several clots were noted within the bladder due to manipulation and bleeding from the prostate gland. These were irrigated free using a Shaggy syringe until the bladder was noted to be free of any significant clots were stone fragments. Minimal oozing was present from the prostate gland and fulguration was not felt to be necessary. Bladder was partially distended and a 22 [place] Mari catheter was placed for bladder rest in the immediate postoperative period with 10 mL of sterile water in the balloon. Catheter was drained and irrigated with isovolemic return. Anesthesia was reversed and patient was transferred to the recovery room in stable stable condition. Follow-up care: Patient will be discharged home with a short course of Macrobid and a refill on Pyridium. He reports he has pain medication at home. Outpatient appointment with [facility] for possible cystoscopy and stent removal is confirmed. Patient is instructed to contact us should he note any fevers, chills, nausea, vomiting or other difficulties in his postoperative period. I attest to the content of the Intraoperative Record and any orders documented therein. Any exceptions are noted below.
--- NOTE | 2017-04-14 13:40 | DIAGNOSTIC IMAGING REPORT ---
FLUOROSCOPIC IMAGES FROM RETROGRADE EXAM CLINICAL HISTORY: LT CYSTO/LASER/STENT EXCHANGE COMPARISON STUDY: [facility] FebruaryApril 13, 2017. Fluoroscopy time: 165 seconds. FINDINGS: 5 fluoroscopic images demonstrate left ureteral stent exchange. Multiple distal left ureteral calculi are noted on the initial images. These calculi are not definitively visualized on the final image obtained at 12:52 PM. IMPRESSION: Fluoroscopic images from left retrograde exam with stent exchange and lithotripsy. Electronically signed by: Jeferson Rich M.D. 04/14/2017 1:38 PM Dictated Date/Time: 04/14/2017 1:37 PM
--- NOTE | 2017-04-14 13:57 | Anesthesiology Progress Note ---
Anesthesia Post Op Note Date & Time Apr 14, 2017 at 13:57 Vital Signs Pain Intensity: 0 Vital Signs Past 12 Hours Date Time Temp Pulse Resp B/P (MAP) Pulse Ox O2 Delivery O2 Flow Rate FiO2 04/14/17 13:48 36.7 76 17 161/83 97 Room Air 2 Oxymask 04/14/17 13:42 75 16 97 04/14/17 13:42 77 16 04/14/17 13:41 160/93 04/14/17 13:37 79 17 04/14/17 13:37 80 17 94 04/14/17 13:36 164/92 04/14/17 13:32 79 18 04/14/17 13:32 79 18 94 04/14/17 13:31 161/93 04/14/17 13:27 76 16 96 04/14/17 13:27 77 16 04/14/17 13:26 163/92 04/14/17 13:22 75 18 98 04/14/17 13:22 76 18 04/14/17 13:21 157/91 04/14/17 13:17 80 14 04/14/17 13:17 79 14 99 04/14/17 13:16 74 16 04/14/17 13:16 78 16 157/93 97 04/14/17 13:11 79 15 173/95 95 04/14/17 13:11 81 15 04/14/17 13:07 179/98 04/14/17 13:06 82 16 04/14/17 13:06 81 16 99 04/14/17 13:06 36.4 93 17 179/98 96 Oxymask 10 04/14/17 08:47 37 77 16 157/88 (111) 97 Room Air Notes Mental Status: alert / awake / arousable, participated in evaluation Pt Amnestic to Procedure: Yes Nausea / Vomiting: adequately controlled Pain: adequately controlled Airway Patency, RR, SpO2: stable & adequate BP & HR: stable & adequate Hydration State: stable & adequate Anesthetic Complications: no major complications apparent
[2017-04-14 14:30] VITALS: BP 144/78; PULSE 74; TEMP 37.2; O2SAT 96
[2017-04-14 15:00] VITALS: BP 134/69; PULSE 81; O2SAT 97
[2017-04-14 15:30] VITALS: BP 159/82; PULSE 85; TEMP 37.1; O2SAT 98
== END | disposition home or self-care (01) ==
LOC: C.ACU 08:05
PROVIDERS: ATTEND Urology
DX: N20.1 Calculus of ureter (principal); N20.0 Calculus of kidney; I10 Essential (primary) hypertension; Z68.33 Body mass index [BMI] 33.0-33.9, adult; E66.9 Obesity, unspecified; E78.5 Hyperlipidemia, unspecified; Z90.89 Acquired absence of other organs; Z79.82 Long term (current) use of aspirin; Z82.49 Family history of ischemic heart disease and other diseases of the circulatory system; Z84.1 Family history of disorders of kidney and ureter

== ENCOUNTER → 2017-04-26 | Outpatient (CLI) | payer OTHER ==
[~2017-04-26] MED LIST changes: -ATROPINE SULFATE 0.1 MG/ML 5ML SYR IV PRN; -CONRAY 30% 150ML BOTTLE ONE; -EpHEDrine SULFATE INJ 50 MG/ML AMP IV PRN; -FENTANYL CITRATE INJ 50 MCG/1 ML 2 ML VIAL IV PRN; -FENTANYL CITRATE INJ 50 MCG/1 ML 2 ML VIAL ONE; -GENTAMICIN INJ 120 MG in DEXTROSE 5% 100ML 100 ML IV SCH; -HYDROmorphone INJ 0.5 MG/0.5 ML SYR IV PRN; -LACTATED RINGER'S 1000ML 1,000 ML IV SCH; -LIDOCAINE HCL 2% 2 ML VIAL (20MG/ML) ONE; -MIDAZOLAM HCL 1 MG/ML 2ML VIAL ONE; -MoRPHine SULFATE 2 MG/ML CARP IV PRN; -NITR1CAP16 PO; -ONDANSETRON INJ 2 MG/ML 2 ML VIAL IV PRN; -ONDANSETRON INJ 2 MG/ML 2 ML VIAL ONE; -OXYCODONE/ACETAMINOPHEN 5-325 TAB PO PRN; -PHEN-775 PO; -PHENAZOPYRIDINE HCL 200 MG TAB PO PRN; -PROPOFOL IV EMULSION 10 MG/ML 20 ML VIAL IV ONE
--- NOTE | 2017-04-26 13:40 | DIAGNOSTIC IMAGING REPORT ---
[facility] CLINICAL HISTORY: N20.0 [id number] nephrocalcinosis COMPARISON STUDY: 04/13/2017 FINDINGS: Left ureteral stent unchanged in position. There has been progressive fragmentation of the grouping of stones distal left ureter adjacent to the left ureteral stent. No significant left renal calcifications are appreciated. Moderate degenerative change lumbar spine. Several prosthetic calcifications unchanged in appearance. IMPRESSION: 1. Progressive fragmentation of the grouping of calcifications distal left ureter adjacent to the stent. 2. The stent itself is in good position. The above report was generated using voice recognition software. It may contain grammatical, syntax or spelling errors. Electronically signed by: Joe Rubalcava M.D. 04/26/2017 1:38 PM Dictated Date/Time: 04/26/2017 1:36 PM
== END | disposition home or self-care (01) ==
LOC: C.RAD 12:56
PROVIDERS: ATTEND Urology
DX: N20.1 Calculus of ureter (principal); Z96.0 Presence of urogenital implants

== ENCOUNTER → 2017-05-30 | Outpatient (CLI) | payer OTHER ==
[~2017-05-30] MED LIST changes: +OPTIRAY 300 IV PRN
--- NOTE | 2017-05-30 14:27 | DIAGNOSTIC IMAGING REPORT ---
IV PYELOGRAM CLINICAL HISTORY: Nephrolithiasis. COMPARISON STUDY: Abdominal CT dated 08/02/2016. IV pyelogram dated 09/22/2016. [facility] dated 04/26/2017. TECHNIQUE: An abdominal attendant coin operated laundry radiograph is performed. IVP pyelogram was then performed following the IV administration of iodinated contrast, tomographic images are acquired in the corticomedullary and excretory phases of enhancement. Overhead views of the renal collecting system and bladder were obtained in multiple obliquities both pre and post void. FINDINGS: Abdominal attendant coin operated laundry radiograph shows a nonobstructed abdominal bowel gas pattern. No calcifications project over either kidney. A 6 cm calcification projects over the left vesicoureteral junction. Prostatic calcifications are seen in the the pelvis. There is mild lumbosacral spondylosis and scoliosis. Following contrast administration the kidneys enhance and excrete symmetrically. There is no hydronephrosis. There is no evidence of urothelial lesion involving the renal pelvis bilaterally or along the course of the ureters. The bladder is normal as visualized. No significant post void residual is seen. IMPRESSION: 1. Suspect a residual 6 mm stone within the distal left ureter just above the vesicoureteral junction. 2. There is no hydronephrosis. 3. No additional calcifications are seen projecting over either kidney. Electronically signed by: Vicente Flores M.D. 05/30/2017 2:26 PM Dictated Date/Time: 05/30/2017 2:21 PM
== END | disposition home or self-care (01) ==
LOC: C.RAD 12:30
PROVIDERS: ATTEND Urology
DX: N20.0 Calculus of kidney (principal)

== ENCOUNTER 2021-06-08 10:38 | Observation (INO) ==
--- NOTE | 2021-06-04 11:06 | Anesthesiology Consultation ---
Date of Service June 04, 2021 Assessment & Plan (1) Encounter for pre-operative examination: Chart Review Chart Review: Acceptable Risk for Surgery (pending preop Covid testing results ) and Patient NOT seen in Pre Admission Testing Per nursing assessment 06/04/2021, patient denies any recent travel with exception to local travel. No known Covid positive exposures or Covid related symptoms. Pt did test Covid positive 04/11/21 (had cough, fatigue, sore throat- symptoms have since resolved)- Covid test was a rapid test on 04/11/21. Pt is fully vaccinated for Covid. Preop Covid testing scheduled 06/04/21= will await results. If patient does test Covid positive- he will need rescheduled due to Mar 2021 positive Covid test being a rapid test Cysto, retro pyelogram, extract bladder stone 10/02/20= Done under [facility] with LMA #4. History Surgery Operation Date: 06/08/21 13:30 Proposed Procedures p Transurethral Resection Prostate - Jaspal Sawyer DO s Cystolithopaxy Possible Bilateral Ureteroscopy and Stone Treatment - Jaspal Sawyer DO Height/Weight Height: 5 ft Weight: 77.564 kg Allergies Allergy/AdvReac Type Severity Reaction Status Date / Time bee venom protein (honey bee) Allergy Severe anayphylaxi Verified 06/04/21 09:48 s No Known Drug Allergies Allergy Unknown NONE Verified 06/04/21 09:48 Medications Home Medications Medication Instructions Recorded Confirmed Last Taken amlodipine 5 mg tablet 5 mg PO QAM 07/22/20 06/04/21 10/02/20 07:30 aspirin 81 mg tablet,delayed 162 mg PO QAM 07/22/20 06/04/21 09/18/20 08:00 release (Adult Aspirin Regimen) omega-3 fatty acids 1,000 mg 1,000 mg PO QAM 07/22/20 06/04/21 09/18/20 08:00 capsule (Fish Oil Concentrate) phenazopyridine 200 mg tablet 200 mg PO Q8H PRN #10 tab 10/02/20 06/04/21 Unknown (Pyridium) atorvastatin 40 mg tablet 40 mg PO QPM 02/11/21 06/04/21 Unknown cranberry fruit 450 mg tablet 450 mg PO QAM 02/11/21 06/04/21 Unknown niacin 500 mg capsule,extended 500 mg PO QAM 02/11/21 06/04/21 Unknown release pediatric multivitamin no.163-vit 1 cap PO QAM 02/11/21 06/04/21 Unknown D3 750 unit-vit K 500 mcg capsule (MVW Complete Formulation Multivitamin) finasteride 5 mg tablet 5 mg PO QAM 06/04/21 06/04/21 Unknown Past Medical History Medical History BPH (benign prostatic hyperplasia) Cardiac murmur Mild aortic regurgitation noted on 2018 echocardiogram. History of COVID-19 FIRST WEEK 03/2021-DX'D AT [facility]-SORE THROAT, FATIGUE, COUGH-RECOVERED AT HOME-SYMPTOMS RESOLVED History of nephrolithiasis HLD (hyperlipidemia) HTN (hypertension) Obesity Refusal of blood transfusions as patient is Religion Past Family History Family History Sister Family history of reaction to anesthesia SLOW TO WAKE UP Sister Family history of reaction to anesthesia Past Surgical History Surgical History H/O lithotripsy X 2 History of colonoscopy 2018 History of cystoscopy History of tonsillectomy Social History Smoking Status: Former smoker Do You Dip or Chew Tobacco: No Smoking End Date: QUIT 25 YRS AGO Hx Alcohol Use: Yes Alcohol type: beer alcohol intake frequency: other Alcohol Intake Frequency Comment: RARELY Hx Substance Use: No substance use type: does not use Lab Results Anesthesia Preop Results Results Anesthesia Widget: WBC 7.49 K/uL (4.8-10.8) 05/28/21 Hgb 13.6 g/dL (14.0-18.0) L 05/28/21 Hct 43.8 % (42-52) 05/28/21 Plt 286 K/uL (130-400) 05/28/21 Na 138 mmol/L (136-145) 05/28/21 K 4.0 mmol/L (3.5-5.1) 05/28/21 Cl 105 mmol/L (98-107) 05/28/21 CO2 29 mmol/L (21-32) 05/28/21 BUN 13 mg/dl (6-23) 05/28/21 Creat 0.73 mg/dl (0.6-1.4) 05/28/21 Glucose Level 109 mg/dl (70-99(Fasting)) H 05/28/21 Urine Color Yellow 05/28/21 Urine Appearance Clear (Clear) 05/28/21 Urine pH 7.0 (4.5-7.5) 05/28/21 Urine Specific [place] 1.010 (1.000-1.030) 05/28/21 Urine Protein Negative (Negative) 05/28/21 Urine Glucose (UA) Negative (Negative) 05/28/21 Urine Ketones Negative (Negative) 05/28/21 Urine Blood Negative (Negative) 05/28/21 Urine Nitrite Negative (Negative) 05/28/21 Urine Bilirubin Negative (Negative) 05/28/21 Urine Urobilinogen Negative (Negative) 05/28/21 Urine Leukocyte Esterase Negative (Negative) 05/28/21 Testing Laboratory Results 06/02/21= URINE CULTURE: No growth Electrocardiogram Date: 09/11/20 Sinus rhythm at 71 bpm with sinus arrhythmia. Left axis deviation. Chest X-Ray Date: 09/11/20 Findings: + NAD Echocardiogram Date: 12/28/17 EF: 60% Normal ejection fraction. Mild concentric hypertrophy. Grade 1 diastolic dysfunction. Normal right ventricular size with normal function. Normal atria. Mitral valve is moderately thickened. Mild aortic regurgitation- directed centrally. Normal PA pressure. Normal aorta.
[~2021-06-08 10:38] MED LIST changes: -AMLO-110 PO; -ASPI81TA28 PO; +LR 15ML/HR IV SCH; -OMEG10007 PO; -OPTIRAY 300 IV PRN; -OXYC-57 PO
--- NOTE | 2021-06-08 12:11 | History & Physical Bridge Note ---
Date of Service June 08, 2021 History & Physical Bridge Note I have examined the patient, reviewed the History & Physical and in the interval since the performance of the History & Physical I have noted the following changes of clinical significance: no changes noted
[2021-06-08] MEDS ORDERED: FLUMAZENIL 0.1 MG/1 ML 10 ML VIAL IV PRN (12:12)
[2021-06-08] MEDS ORDERED: ATROPINE SULFATE 0.1 MG/ML 10ML SYR IV PRN (12:12)
[2021-06-08] MEDS ORDERED: ePHEDrine sulfate 50 MG/ML AMP IV PRN (12:12)
[2021-06-08] MEDS ORDERED: PROMETHAZINE HCL 12.5 MG in SODIUM CHLORIDE 0.9% 50 ML IV PRN (12:12)
[2021-06-08] MEDS ORDERED: NALOXONE HCL 0.4 MG/1 ML VIAL/CARP IV PRN (12:12)
[2021-06-08] MEDS ORDERED: fentaNYL citrate 100 MCG/2 ML VIAL IV PRN (12:12)
[2021-06-08] MEDS ORDERED: ONDANSETRON INJ 2 MG/ML 2 ML VIAL IV PRN ×2 (12:12→16:09)
[2021-06-08] MEDS ORDERED: PROPOFOL IV EMULSION 10 MG/ML 20 ML VIAL IV ONE (12:50)
[2021-06-08] MEDS ORDERED: MIDAZOLAM HCL 1 MG/ML 2ML VIAL ONE (12:50)
[2021-06-08] MEDS ORDERED: ONDANSETRON INJ 2 MG/ML 2 ML VIAL ONE (12:50)
[2021-06-08] MEDS ORDERED: DEXAMETHASONE SOD INJ 4 MG/ML VIAL ONE (12:50)
[2021-06-08] MEDS ORDERED: LIDOCAINE 2% 2 ML VIAL/AMP(20MG/ML) INFIL ONE (12:50)
[2021-06-08] MEDS ORDERED: fentaNYL citrate 100 MCG/2 ML VIAL ONE ×2 (12:50→13:49)
[2021-06-08] MEDS ORDERED: KETOROLAC 30 MG/ML VIAL ONE (14:26)
--- NOTE | 2021-06-08 14:40 | Operative Report ---
[facility] Post Operative Report Pre & Post Diagnosis Operation Date: 06/08/21 12:40 Pre-Op Diagnosis: Bladder stones, Benign prostatic hyperplasia, Recurrent nephrolithiasis, enlarged prostate Post-Op Diagnosis: Bladder stones, Benign prostatic hyperplasia, Recurrent nephrolithiasis, enlarged prostate I identified the patient and participated in the time-out.: Yes Procedure Operation Date: 06/08/21 12:40 Actual Procedures p Transurethral Resection and vaporization of Prostate, bilateral retrograde pyelogram(Not Applicable) - Jaspal Sawyer DO Surgeon Jaspal Sawyer, II, DO Customer Services Supervisor None Estimated Blood Loss 10 Findings Consistent with Post-Op Diagnosis Large Prostate with obstruction. Significant j-hooking of ureters with large prostatic varicosity. Both ureters in close proximity to bladder neck. 5 Fr catheter was placed on right to monitor during resection. Specimens Prostate adenoma. Drains 24Fr [address]ter Anesthesia Type General Complications none Disposition Disposition: Recovery Room Indications Patient with obstruction due to prostate enlargement. Risks and benefits discussed at length. Description of Procedure Patient was consented and brought back to the operating room. Patient was placed under anesthesia in the supine position and moved to the dorsal lithotomy posit ion. Patient was prepped and draped in the regular sterile fashion. A time out was completed. A 30degree Cystoscope was placed into the bladder and the entire bladder was examined. The UO's were identified as well as the bladder neck, trigone, dome, and the other important landmarks. The prostatic urethra and large lobes/adenoma was assessed and the veru and bladder neck identified and area/s ize was assessed. A 5 Fr open ended catheter was placed on the left then the right and retrograde pyelograms were completed. Significant J hook of both ureters due to prostate. Close proximity to bladder neck with right nearest. The 5 Fr was maintained during resection to monitor. It was removed once resection was complete. NO issues or problems. The resection scope was placed and the fine bipolar loop was selected. Starting at the 5 and 7 o'clock positions, a channel was created from bladder neck to the veru. Resection from the 12 o;clock position to the channel was then completed on the left and right. A large amount of prostatic calcifications were noted. The Specimen was removed and sent for analysis. The resection bed and any bleeding areas were fulgurated/cauterized and the entire area inspected. All bleeding was controlled. The bladder was inspected a final time. Both ureteral openings were found to be patent and away from the resection. The bladder was emptied and irrigated. All specimen and debris was removed. The scope was removed with the bladder partially full. A catheter was placed and balloon elevated. This was easily irrigated. The patient was cleaned, aroused from anesthesia, and transferred to the pacu in stable condition having tolerated the procedure well with no complications. I was present and participated in all aspects of the procedure. The patient will be monitored in the PACU until transferred. Plan to maintain on continuous irrigation overnight and remove catheter in office in approx 2 weeks. I attest to the content of the Intraoperative Record and any orders documented therein. Any exceptions are noted below.
[2021-06-08] MEDS: LABETALOL HCL IV 5 MG/ML 20ML IV PRN ×3 (14:55→15:05)
--- NOTE | 2021-06-08 15:21 | Fluoroscopy Report ---
FL retrograde includes kub CLINICAL HISTORY: B/L STONE TREATMENT. Bilateral retrograde pyelogram. COMPARISON STUDY: Abdomen and pelvis CT 06/04/2021. FLUOROSCOPY TIME: 15 second. FINDINGS: 11 fluoroscopic spot images of the abdomen and pelvis demonstrate bilateral retrograde pyel ograms. No hydronephrosis. IMPRESSION: Fluoroscopic assistance provided for bilateral retrograde pyelograms. ACT 112: Negative or not required by law. Electronically signed by: Mendez Cadena M.D. 06/08/2021 3:20 PM
--- NOTE | 2021-06-08 15:21 | Anesthesiology Progress Note ---
Date of Service June 08, 2021 Anesthesia Post Procedure Vital Signs Vital Signs: Temp Pulse Pulse Resp BP Pulse Ox 06/08/21 15:15 36.4 C L 67 14 156/91 H 97 06/08/21 15:05 71 14 162/94 H 100 06/08/21 14:55 73 15 185/102 H 100 06/08/21 14:45 36.5 C 89 15 181/104 H 100 06/08/21 11:30 36.8 C 94 H 18 173/96 H 97 Transfer of Care Handoff Completed per policy Notes Mental Status: alert / awake / arousable Patient Amnestic to Procedure: Yes Nausea / Vomiting: adequately controlled Pain: adequately controlled Airway Patency, RR, SpO2: stable & adequate BP & HR: stable & adequate Hydration State: stable & adequate Anesthetic Complications: no major complications apparent
[2021-06-08] MEDS ORDERED: BELLADONNA/OPIUM SUPP 60 MG SUPP PR PRN (16:09)
[2021-06-08] MEDS ORDERED: MoRPHine SULFATE 2 MG/ML CARP IV PRN (16:09)
[2021-06-08] MEDS ORDERED: PHENAZOPYRIDINE HCL 200 MG TAB PO PRN (16:09)
[2021-06-08] MEDS ORDERED: oxyCODONE/ACETAMINOPHEN 5mg/325mg TAB PO PRN (16:09)
[2021-06-08 16:37] LABS: Basophils # (auto) 0.01 K/uL (0-0.2); Basophils % (auto) 0.1 %; Eosinophils # (auto) 0.34 K/uL (0-0.5); Hematocrit (blood only) 38.4 % (42-52); Hemoglobin 12.6 g/dL (14.0-18.0); Immature Granulocytes # (auto) 0.02 K/uL (0.00-0.02); Immature Granulocytes % (auto) 0.2 %; Lymphocytes # (auto) 1.53 K/uL (1.2-3.4); Lymphocytes % (auto) 18.1 %; Mean Corpuscular Hemoglobin 29.5 pg (25-34); Mean Corpuscular Hgb Conc 32.8 g/dL (32-36); Mean Corpuscular Volume 89.9 fL (80-100); Mean Platelet Volume 9.1 fL (7.4-10.4); Monocytes # (auto) 0.65 K/uL (0.11-0.59); Monocytes % (auto) 7.7 %; Neutrophils # (auto) 5.89 K/uL (1.4-6.5); Neutrophils % (auto) 69.9 %; Platelet Count 231 K/uL (130-400); RDW Coefficient of Variation 12.8 % (11.5-14.5); RDW Standard Deviation 41.8 fL (36.4-46.3); Red Blood Count 4.27 M/uL (4.7-6.1); White Blood Count 8.44 K/uL (4.8-10.8)
[2021-06-08 16:55] LABS: BUN Creatinine Ratio 14.5 (10-20); Calcium 8.3 mg/dl (8.5-10.1); Creatinine Clr Calc Pharmacy 84.4 ml/min; Est GFR (Non-African American) 95.7 ml/min; Potassium 4.1 mmol/L (3.5-5.1)
[2021-06-08] MEDS: SODIUM CHLORIDE 0.9% 1000ML 1,000 ML IV SCH (17:04)
[2021-06-08] MEDS ORDERED: ATORVASTATIN 40 MG TAB PO SCH (21:00)
[2021-06-08] MEDS: DOCUSATE SODIUM 100 MG CAP PO SCH (22:43)
[2021-06-08] MEDS: ceFAZolin 2000MG 2,000 MG/15 ML SYR IV SCH (22:46)
[2021-06-09] MEDS: SODIUM CHLORIDE 0.9% 1000ML 1,000 ML IV SCH (04:55)
[2021-06-09] MEDS: ceFAZolin 2000MG 2,000 MG/15 ML SYR IV SCH ×2 (04:57→12:42)
[2021-06-09] MEDS: DOCUSATE SODIUM 100 MG CAP PO SCH (08:05)
[2021-06-09 08:50] LABS: Basophils # (auto) 0.01 K/uL (0-0.2); Basophils % (auto) 0.1 %; Eosinophils # (auto) 0.31 K/uL (0-0.5); Eosinophils % (auto) 2.2 %; Hematocrit (blood only) 38.9 % (42-52); Hemoglobin 12.5 g/dL (14.0-18.0); Immature Granulocytes # (auto) 0.04 K/uL (0.00-0.02); Immature Granulocytes % (auto) 0.3 %; Lymphocytes # (auto) 1.84 K/uL (1.2-3.4); Lymphocytes % (auto) 13.2 %; Mean Corpuscular Hemoglobin 28.9 pg (25-34); Mean Corpuscular Hgb Conc 32.1 g/dL (32-36); Monocytes # (auto) 0.89 K/uL (0.11-0.59); Monocytes % (auto) 6.4 %; Neutrophils # (auto) 10.85 K/uL (1.4-6.5); Neutrophils % (auto) 77.8 %; Platelet Count 233 K/uL (130-400); RDW Coefficient of Variation 12.9 % (11.5-14.5); RDW Standard Deviation 42.6 fL (36.4-46.3); Red Blood Count 4.32 M/uL (4.7-6.1); White Blood Count 13.94 K/uL (4.8-10.8)
[2021-06-09] MEDS ORDERED: amLODIPine BESYLATE 5 MG TAB PO SCH (09:00)
--- NOTE | 2021-06-09 09:14 | Urology Progress Note ---
Date of Service June 09, 2021 Assessment & Plan (1) BPH loc w urin obs/LUTS: Plan: - Pt POD#1 s/p Transurethral Resection and vaporization of Prostate, bilateral retrograde pyelogram with Dr. Sawyer. - Doing well, progressing as expected. - Afebrile, lab work reviewed - creatinine 0.69, WBC 13.94, Hgb 12.5. - Tolerating PO diet. - 3 way Mari catheter intact, patent and draining clear urine with CBI on slow. - CBI clamped @0845, nursing aware - will reassess later this AM. - Maintain Mrai catheter upon discharge for approximately [address] Sawyer. - Anticipate home with Mari catheter later today presuming urine appropriate and he continues to progress as expected. - Will discharge with short course of PO antibiotics. - Expected clinical course reviewed, all questions answered. - Will arrange outpatient follow-up with our service for voiding trial. Patient reassessed at 1000 Mari catheter intact and draining clear yellow urine with CBI clamped. Order placed to d/c CBI. Maintain Mari catheter. Patient ready for discharge now - orders placed. Admission and Anticipated Discharge Date Admission Date: June 08, 2021 Subjective Patient seen and examined at bedside this AM. He is awake, alert, and sitting up in bed. No acute issues overnight. Denies flank, abdominal or suprapubic pain. Mari catheter intact, patent and draining clear yellow urine in tubing with CBI on slow. CBI clamped at time of exam at 0845. Tolerating PO diet, no nausea or vomiting. No fever or chills. Offers no additional concerns. He feels ready for discharge today. Review of Systems Constitutional: as per Subjective / HPI Gastrointestinal: as per Subjective / HPI Genitourinary: + as per Subjective / HPI Physical Exam Constitutional: well developed and well nourished; no acute distress and not ill appearing Respiratory: normal respiratory effort and able to speak in complete sentences ; no respiratory distress and no labored breathing Cardiovascular: Extremities: no pedal edema Gastrointestinal (Abdomen): Inspection/Auscultation: abdomen normal to inspection; abdomen not distended Percussion/Palpation: abdomen soft; abdomen nontender and no guarding Neurologic: moves all extremities and awake Psychiatric: Orientation: alert and oriented x 3 Genitourinary: Mari catheter intact, patent and draining clear yellow urine in tubing with CBI on slow. CBI clamped at time of exam at 0845. Results & Data ([facility]) Vital Signs (Past 12 Hours) Vital Signs Temp Pulse Pulse Resp BP Pulse Ox 06/09/21 08:28 36.9 C 91 H 16 167/88 H 95 06/09/21 02:20 37.1 C 73 16 131/73 98 06/08/21 22:12 36.9 C 68 16 139/68 98 PG Care Time/CCT Total # of Minutes Spent Total Time Spent with Patient: Total time spent is greater than 50% in coordination of care (as documented) at patient's floor/unit and/or counseling patient: Coding Level of Care Code 72308 Subseq Hosp Care Lvl 2 Diagnoses BPH loc w urin obs/LUTS N40.1
[2021-06-09 09:17] LABS: BUN Creatinine Ratio 17.4 (10-20); Calcium 8.6 mg/dl (8.5-10.1); Creatinine Clr Calc Pharmacy 92.9 ml/min; Est GFR (African American) 115.5 ml/min; Est GFR (Non-African American) 99.6 ml/min; Potassium 4.1 mmol/L (3.5-5.1)
--- NOTE | 2021-06-09 12:01 | Discharge Summary ---
Date of Service June 09, 2021 Admission HPI Per Admitting Provider Patient with severe stone disease recurrent bladder stones and extremely large prostate with large median lobe causing considerable obstruction. Here for transurethral resection of prostate. Admission Exam Per Admitting Provider General: Alert in no acute distress. HEENT: Inspection normal Psychologic: Normal affect. Respiratory: Nonlabored. No use of accessory muscles. Skin: [place] and Dry. No rashes or visible lesions. Principal Diagnosis BPH with urinary obstruction/lower urinary tract symptoms Discharge Exam Constitutional well developed and well nourished; no acute distress and not ill appearing Respiratory normal respiratory effort and able to speak in complete sentences; no respiratory distress and no labored breathing Cardiovascular Extremities: no pedal edema Gastrointestinal (Abdomen) Inspection/Auscultation: abdomen normal to inspection; abdomen not distended Percussion/Palpation: abdomen soft; abdomen nontender and no guarding Neurologic moves all extremities and awake Psychiatric Orientation: alert and oriented x 3 Genitourinary Mari catheter intact, patent and draining clear yellow urine in tubing with CBI on slow. CBI clamped at time of exam at 0845. Discharge Data Allergies Allergy/AdvReac Type Severity Reaction Status Date / Time bee venom protein (honey bee) Allergy Severe anayphylaxi Verified 06/08/21 11:20 s No Known Drug Allergies Allergy Unknown NONE Verified 06/08/21 11:20 Procedures Performed Operation Date: 06/08/21 12:40 Actual Procedures p Transurethral Resection Prostate, bilateral retrograde pyelogram(Not Applicable) - Jaspal Sawyer, DO Ordered Studies 06/08/21 12:40 FL retrograde includes kub Routine Hospital Course (1) BPH loc w urin obs/LUTS: - Pt POD#1 s/p Transurethral Resection and vaporization of Prostate, bilateral retrograde pyelogram with Dr. Sawyer. - Doing well, progressing as expected. - Afebrile, lab work reviewed - creatinine 0.69, WBC 13.94, Hgb 12.5. - Tolerating PO diet. - 3 way Mari catheter intact, patent and draining clear urine with CBI on slow. - CBI clamped @0845, nursing aware - will reassess later this AM. - Maintain Mari catheter upon discharge for approximately [address] Sawyer. - Anticipate home with Mari catheter later today presuming urine appropriate and he continues to progress as expected. - Will discharge with short course of PO antibiotics. - Expected clinical course reviewed, all questions answered. - Will arrange outpatient follow-up with our service for voiding trial. Patient reassessed at 1000 Mari catheter intact and draining clear yellow urine with CBI clamped. Order placed to d/c CBI. Maintain Mari catheter. Patient ready for discharge now - orders placed. Total Time Total Time Spent Total Time Spent (In Minutes): 29 Discharge Plan Discharge Items Patient Disposition: Home - Self-Care Reason For Visit: BPH WITH OBSTRUCTION, HEMATURIA Discharge Diagnosis: BPH with obstruction, hematuria Activity: Resume your previous activity Lifting: No more than 25 pounds Bathing Comment: OK to shower after discharge, no tub bath or soaking Sexual Activity: Wait until after follow-up appointment Exercise/Sports: Wait until after follow-up appointment Driving/Machine Use: No driving while taking prescription pain medication Non-emergency contact: Surgeon and Urologist Call non-emergency contact if: you have any medication questions, your pain is not controlled, you have a fever and your temperature is above 101 Follow-up/Referrals: Jaspal Sawyer DO [Physician] - 06/23/21 10:40 am Billy Carroll [Primary Care Provider] - Diet: Regular Addtl Attending Provider Instructions: Please take all medications as prescribed and keep all follow-ups as scheduled. Please call our office at [phone] with any questions, concerns or need to reschedule appointments for any reason. We are happy to assist you. Tips for your recovery at home: Dont be alarmed by brownish or reddish blood or clots in your urine. This is a result of the procedure. This may occur off and on for weeks to months after the procedure but should continue to improve. Drink plenty of fluids during the day (enough to keep your urine very light colored). This will help keep a healthy flow of urine. Do not lift >25 lbs until your followup Avoid constipation. Please use a stool softener (Colace) for the first two weeks after your procedure Be sure to finish the antibiotics as prescribed. If you go home with a catheter, please wash tubing where it enters your body twice daily with mild soap (Dove or Dial). Once your catheter is removed, expect some blood in your urine and some burning when you urinate. You should have an appointment to have this removed, if you do not please call our office to arrange. Pending Studies at Discharge: No Stand-Alone Forms: [facility], Smoking Cessation Medications and DC Order Prescriptions: New cephalexin 500 mg capsule 500 mg PO BID 7 Days Qty: 14 RF: 0 docusate sodium [Colace] 100 mg capsule 100 mg PO BID Qty: 60 RF: 0 Continued amlodipine 5 mg tablet 5 mg PO QAM RF: 0 aspirin [Adult Aspirin Regimen] 81 mg tablet,delayed release (DR/EC) 162 mg PO QAM RF: 0 omega-3 fatty acids [Fish Oil Concentrate] 1,000 mg capsule 1,000 mg PO QAM RF: 0 atorvastatin 40 mg tablet 40 mg PO QPM RF: 0 niacin 500 mg capsule, extended release 500 mg PO QAM RF: 0 cranberry fruit 450 mg tablet 450 mg PO QAM RF: 0 MVW Complete Formul Multivit 750-500 unit-mcg capsule 1 cap PO QAM RF: 0 phenazopyridine [Pyridium] 200 mg tablet 200 mg PO Q8H PRN (Reason: pain) Qty: 10 RF: 0 finasteride 5 mg tablet 5 mg PO QAM RF: 0 Discharge Orders: Discharge Order (Routine); Ordered 06/09/21 Ordered By: Mariya Mcdonough/Other Patient Handouts: Urinary Catheter Bag Empty Clean, Indwelling Urinary Catheter Dc, Leg Bag Care Dc Admission Data Admit Date/Time: 06/08/21 12:16 Attending Provider: Jaspal Sawyer Admit Provider: Jaspal Sawyer Primary Care Provider: Billy Carroll Coding Level of Care Code D/C DAY MANAGEMENT <30 MINS Diagnoses BPH loc w urin obs/LUTS N40.1
== END 2021-06-09 18:40 | disposition home or self-care (01) ==
LOC: 3N 10:38 → ASU 10:38